=== PATIENT | male | born 1960 | race Caucasian/White ===

== ENCOUNTER 2018-04-26 07:26 | Inpatient (IN) | payer MEDICAID ==
[~2018-04-26] VITALS: Ht 167.6 cm; Wt 66.7 kg
[2018-04-26 07:46] VITALS: BP 176/104
--- NOTE | 2018-04-26 07:53 | NUR ---
PT AMBULATES TO BED 5
--- NOTE | 2018-04-26 08:00 | NUR ---
BIB SELF C/O N/V, LEFT FLANK PAIN, GENERALIZED ABD PAIN EXACERBATED BY CHANGES IN POSITION X 2 WEEKS. VOMITING X1 TODAY. DENIES URINARY COMPLAINTS. TOOK TYLENOL AT 0700, WITH SOME RELIEF; AAOX4, PERRL, WITH EVEN AND STEADY GAIT; LUNGS CLEAR BL, BREATHING UNLABORED; HR EVEN AND REGULAR, BL PERIPHERAL PULSES PRESENT; BS ACTIVE X4; PT DENIES ANY FEVER, CP, SOB, OR COUGH AT THIS TIME; PT STATES 7/10 PAIN AT THIS TIME; VSS; PATIENT POSITIONED FOR COMFORT; HOB ELEVATED; BEDRAILS UP X2; BED DOWN. 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
--- NOTE | 2018-04-26 08:10 | NUR ---
Patient being evaluated by physician at bedside.
[2018-04-26] MEDS ORDERED: NACL 0.9% 1,000 ML IV SCH (08:12)
[2018-04-26] MEDS ORDERED: NACL 0.9% 1,000 ML IV ONE (08:12)
[2018-04-26] MEDS ORDERED: KETOROLAC 30 MG/ML VIAL IVP ONE (08:15)
[2018-04-26] MEDS ORDERED: MORPHINE SULFATE 4 MG/ML SYR IVP ONE (08:15)
[2018-04-26] MEDS ORDERED: METOCLOPRAMIDE 10 MG/2 ML INJ VIAL IVP ONE (08:15)
[2018-04-26] MEDS ORDERED: ONDANSETRON 4 MG/2 ML VIAL IVP ONE (08:15)
[2018-04-26] MEDS ORDERED: PROMETHAZINE 25 MG/ML VIAL IM ONE (08:15)
--- NOTE | 2018-04-26 08:39 | NUR ---
PT TAKEN TO CT VIA [facility]BER
--- NOTE | 2018-04-26 08:47 | NUR ---
PT RETURNED FROM CT, US AT BEDSIDE
--- NOTE | 2018-04-26 09:07 | NUR ---
PHELB AT BEDSIDE.
[2018-04-26] MEDS ORDERED: cefTRIAXone 1,000 MG VIAL ONE (09:16)
[2018-04-26 09:26] LABS: BASOPHILS # (AUTO) 0.1 K/uL (0.00-0.22); BASOPHILS % (AUTO) 0.8 % (0.0-2.0); EOSINOPHILS # (AUTO) 0.1 K/uL (0-0.4); EOSINOPHILS % (AUTO) 1.5 % (0.0-4.0); HEMOGLOBIN 11.4 g/dL (12.0-18.0); LYMPHOCYTES # (AUTO) 1.9 K/uL (2.0-11.5); MEAN CORPUSCULAR HEMOGLOBIN 29 pg (27-31); MEAN CORPUSCULAR HGB CONC 32 g/dL (33-37); MEAN CORPUSCULAR VOLUME 88.8 fL (80-94); MONOCYTES # (AUTO) 0.5 K/uL (0.8-1.0); MONOCYTES % (AUTO) 5.2 % (1.7-9.3); NEUTROPHILS # (AUTO) 6.9 K/uL (1.8-7.7); NEUTROPHILS % (AUTO) 72.5 % (42.2-75.2); PLATELET COUNT (AUTO) 473 K/uL (140-450); RED BLOOD CELL COUNT(AUTO) 3.94 MIL/uL (4.20-6.10); RED CELL DISTRIBUTION WIDTH 14.1 % (11.6-13.7); WHITE BLOOD COUNT (AUTO) 9.6 K/uL (4.8-10.8)
--- NOTE | 2018-04-26 09:35 | NUR ---
PT IN BED WITH HANDS UNCROSSED. FEET UNCROSSED. IN RELAXED POSITION. FAMILY AT BEDSIDE.
--- NOTE | 2018-04-26 09:36 | NUR ---
NOTIFIED LAB URINE HAS BEEN COLLECTED SINCE PT CAME BACK TO THE BED.
[2018-04-26 09:42] LABS: ALBUMIN 1.5 g/dL (3.4-5.0); ANION GAP 12.6 (8-16); CARBON DIOXIDE 21.1 mmol/L (21-32); CREATININE 1.7 mg/dL (0.7-1.3); POTASSIUM 4.7 mmol/L (3.5-5.1); TOTAL BILIRUBIN 0.3 mg/dL (0.0-1.0)
--- NOTE | 2018-04-26 10:02 | NUR ---
PT STATES PAIN HAS SUBSIDED AT THIS TIME.
[2018-04-26 10:33] LABS: APPEARANCE,URINE CLOUDY (CLEAR); BILIRUBIN,URINE NEGATIVE (NEGATIVE); BLOOD, URINE 2+ (NEGATIVE); COLOR,URINE YELLOW (YELLOW); LEUKOCYTE ESTERASE ,URINE 3+ (NEGATIVE); NITRITE, URINE NEGATIVE (NEGATIVE); PH,URINE 6.5 (5.0-9.0); UGLUCOSE 2+ (NEGATIVE)
[2018-04-26 10:36] LABS: RBC,URINE 0-5 (RARE) /HPF (0-5); WBC,URINE TOO MANY TO COUNT /HPF (0-5)
--- NOTE | 2018-04-26 10:37 | NUR ---
DR. YODER MADE AWARE OF B/P 168/98 AT THIS TIME. ORDERS TO BE PLACED.
[2018-04-26] MEDS ORDERED: cloNIDine 0.1 MG TAB PO ONE (10:50)
[2018-04-26] MEDS ORDERED: PIPERACILLIN/TAZOBACTAM 3.375 GM in DEXTROSE 5% 50 ML IV ONE (10:55)
[2018-04-26] MEDS ORDERED: ACETAMINOPHEN 325 MG TAB PO PRN (11:00)
[2018-04-26] MEDS ORDERED: MORPHINE SULFATE 2 MG/ML SYR IVP PRN (11:00)
[2018-04-26] MEDS ORDERED: HYDROcodone/APAP 5/325 MG 1 TAB TAB PO PRN (11:00)
[2018-04-26] MEDS ORDERED: LORazepam 2 MG/ML VIAL IM/IVP PRN (11:00)
[2018-04-26] MEDS ORDERED: ZOLPIDEM 5 MG TAB PO PRN (11:00)
[2018-04-26] MEDS ORDERED: DOCUSATE SODIUM 100 MG GELCAP PO PRN (11:00)
[2018-04-26] MEDS ORDERED: PIPERACILLIN/TAZOBACTAM 3.375 GM VIAL IV ONE (11:10)
--- NOTE | 2018-04-26 11:13 | NUR ---
DR. PLATA AT BEDSIDE EVALUATING.
--- NOTE | 2018-04-26 11:15 | NUR ---
XRAY AT BEDSIDE
--- NOTE | 2018-04-26 11:36 | NUR ---
PT TAKEN TO [facility] FLOOR BY SHAWN JAEGER VIA WHEELCHAIR
--- NOTE | 2018-04-26 11:46 | NUR ---
Patient will be admitted to care of DR. SPEARS. Admited to [facility]. Will go to room 106A. Belongings list completed. Report to OZZY ESCOBAR.
--- NOTE | 2018-04-26 11:50 | NUR ---
RECEIVED BEDSIDE REPORT FROM ER NURSE. PT STABLE, AWAKE, AND ALERT. NO SIGNS OF DISTRESS NOTED. DENIES PAIN. DAUGHTER AT THE BEDSIDE. A&O X4. NO REDNESS, SWELLING, OR INFLAMMATION NOTED ON IV SITE. BED IN LOW POSITION. CALL LIGHT WITHIN REACH. PLAN OF CARE REVIEWED. SAFETY MEASURES IN PLACE.
[2018-04-26 12:00] VITALS: BP 120/70
[2018-04-26] MEDS: NACL 0.9% 1,000 ML IV SCH ×2 (12:55→21:46)
[2018-04-26] MEDS ORDERED: KETOROLAC 30 MG/ML VIAL IVP SCH (14:00)
[2018-04-26 14:07] LABS: PROTHROMBIN TIME 9.3 secs (10.8-13.4)
--- NOTE | 2018-04-26 14:35 | NUR ---
PT REFUSED SCHEDULED TORADOL. PT DENIES PAIN. NO OTHER NEEDS AT THIS TIME. FAMILY AT THE BEDSIDE.
[2018-04-26 15:11] LABS: MAGNESIUM 1.7 mg/dL (1.8-2.4)
[2018-04-26 16:00] VITALS: BP 112/65
--- NOTE | 2018-04-26 16:30 | NUR ---
VITAL SIGNS TAKEN. PT STABLE, AWAKE, AND ALERT. DENIES PAIN. NO OTHER NEEDS AT THIS TIME.
[2018-04-26] MEDS: KETOROLAC 30 MG/ML VIAL IVP SCH ×2 (18:00→23:43)
--- NOTE | 2018-04-26 18:13 | NUR ---
PT REFUSED SCHEDULED TORADOL. PT DENIES PAIN. NO OTHER NEEDS AT THIS TIME. FAMILY AT THE BEDSIDE.
--- NOTE | 2018-04-26 19:05 | NUR ---
ENDORSED PT TO SHAWN KELLY FOR CONTINUITY OF CARE. PT STABLE, AWAKE, AND ALERT.
--- NOTE | 2018-04-26 19:05 | NUR ---
RECEIVED REPORT FORM CARLIE PRECIADO RN DAYSHIFT NURSE AT BEDSIDE FOR CONTINUITY OF CARE, PT IN STABLE CONDITION.
[2018-04-26 20:00] VITALS: BP 118/63
--- NOTE | 2018-04-26 20:00 | NUR ---
PT IN BED WITH SIDE RAILS UP, AOX4 NO S/S OF PAIN OR DISTRESS NOTED. V/S FOLLOWS T 97.1 P 58 R 18 B/P 118/63 02 98% ON ROOM AIR. PT DENIES PAIN IV SITE LAC 22G INTACT AND FLUSHED PATENT N/S RUNNING AT 100MLS/HR.
[2018-04-26] MEDS ORDERED: INFLUENZA VIRUS VACCINE QUAD 0.5 ML SYR IMVAC PRN (22:15)
[2018-04-27] VITALS: BP 122/72
--- NOTE | 2018-04-27 | NUR ---
PT IN BED SLEEPING NO S/S OF PAIN OR DISTRESS NOTED. PT DECLINES DUE SHOT OF TORADOL. PT SAID THAT HE IS NOT HAVING ANY PAIN AT THIS TIME . V/S FOLLOWS T 97.0 P 56 R 18 B/P 122/72 02 97% WITH R/A. CALL JERONIMO IN REACH AND BED IN LOW POSITION WITH SIDE RAILS UP X2 AND CALL JERONIMO IN REACH.
--- NOTE | 2018-04-27 02:00 | NUR ---
PT IN BED NO S/S OF PAIN OR DISTRESS NOTED. PT SLEEPING SOUNDLY.
[2018-04-27] MEDS: KETOROLAC 30 MG/ML VIAL IVP SCH ×3 (06:00→17:06)
--- NOTE | 2018-04-27 06:16 | NUR ---
PT IN BED NO S/S OF PAIN OR DISTRESS NOTED. PT DECLINED HIS SCHEDULED TORADOL , HE DENIES PAIN AND DOESNT WANT THE SHOT.
[2018-04-27] MEDS ORDERED: MAGNESIUM OXIDE 400 MG TAB PO SCH (06:30)
--- NOTE | 2018-04-27 07:10 | NUR ---
RECEIVED BEDSIDE REPORT FROM BRIDGE WORKER NURSE. PT IS AAOX4. NO SIGNS OF DISTRESS NOTED ON ROOM AIR. DENIES ANY PAIN. IV SITE TO LEFT AC, PATENT AND INTACT, ASYMPTOMATIC. BED IN LOWEST POSITION. CALL LIGHT WITHIN REACH. PLAN OF CARE DISCUSSED. PT VERBALIZED UNDERSTANDING. SAFETY MEASURES IN PLACE.
--- NOTE | 2018-04-27 07:15 | NUR ---
GAVE REPORT TO ANIRUDH ESCOBAR DAYSHIFT NURSE AT BEDSIDE, PT IN STABLE CONDITION.
[2018-04-27 07:19] LABS: BASOPHILS # (AUTO) 0.1 K/uL (0.00-0.22); BASOPHILS % (AUTO) 1.3 % (0.0-2.0); EOSINOPHILS # (AUTO) 0.3 K/uL (0-0.4); HEMATOCRIT 33.1 % (36-52); HEMOGLOBIN 10.5 g/dL (12.0-18.0); LYMPHOCYTES # (AUTO) 2.8 K/uL (2.0-11.5); MEAN CORPUSCULAR HEMOGLOBIN 29 pg (27-31); MEAN CORPUSCULAR HGB CONC 32 g/dL (33-37); MEAN CORPUSCULAR VOLUME 90.5 fL (80-94); MONOCYTES # (AUTO) 0.6 K/uL (0.8-1.0); MONOCYTES % (AUTO) 6.6 % (1.7-9.3); NEUTROPHILS # (AUTO) 5.2 K/uL (1.8-7.7); NEUTROPHILS % (AUTO) 58.1 % (42.2-75.2); PLATELET COUNT (AUTO) 404 K/uL (140-450); RED BLOOD CELL COUNT(AUTO) 3.66 MIL/uL (4.20-6.10); RED CELL DISTRIBUTION WIDTH 14.7 % (11.6-13.7); WHITE BLOOD COUNT (AUTO) 8.9 K/uL (4.8-10.8)
[2018-04-27 07:41] LABS: ANION GAP 8.9 (8-16); CARBON DIOXIDE 23.2 mmol/L (21-32); CREATININE 2.2 mg/dL (0.7-1.3); POTASSIUM 5.1 mmol/L (3.5-5.1)
[2018-04-27 07:48] LABS: CHOL/HDL RATIO 9.7 (1-4.5); MAGNESIUM 1.8 mg/dL (1.8-2.4); PHOSPHORUS 4.4 mg/dL (2.5-4.9)
[2018-04-27 08:00] VITALS: BP 149/88
[2018-04-27] MEDS: LACTOBACILLUS RHAMNOSUS GG 1 EACH CAP PO SCH (08:04)
--- NOTE | 2018-04-27 08:08 | NUR ---
PATIENT HAS BEEN SCREENED AND CATEGORIZED HIGH NUTRITION RISK. PATIENT WILL BE SEEN WITHIN 1-2 DAYS OF ADMISSION. 04/26/18-04/27/[address]
[2018-04-27] MEDS: NACL 0.9% 1,000 ML IV SCH ×2 (09:24→17:46)
--- NOTE | 2018-04-27 09:30 | NUR ---
PT IS AMBULATORY, INDEPENDENT, GAIT STEADY. PT WENT TO THE RESTROOM AND CAME BACK TO BED.
--- NOTE | 2018-04-27 12:15 | NUR ---
PT DENIES ANY PAIN, EATING LUNCH AT THIS TIME.
--- NOTE | 2018-04-27 15:35 | NUR ---
04/27/18 RD INITIAL ASSESSMENT COMPLETED PLEASE REFER TO NUTRITION ASSESSMENT UNDER CARE ACTIVITY FOR ESTIMATED NUTRITIONAL NEEDS. 1. CONTINUE RENAL DIET TOLERATED 2. RD PROVIDED NUTRITION EDUCATION ON REDUCED CALCIUM AND PHOSPHATE DIET 3. RD TO FOLLOW-UP 5-7 DAYS, LOW RISK LUCHO FELIX, RD
[2018-04-27 16:00] VITALS: BP 127/85
--- NOTE | 2018-04-27 16:00 | NUR ---
PT'S BP WAS HIGH, PT VERBALIZED HE IS SOMETIMES ANXIOUS IN THE HOSPTIAL. OFFEREED PT'S MEDICATION FOR ANXIETY. PT REFUSED. PUT PT FLAT AND TOLD PT TO MEDITATE AND RELAX. WILL RECHECK BP IN 10-15 MIN. PT AGREES.
--- NOTE | 2018-04-27 16:15 | NUR ---
RECHECKED BP 127/85, HR 80. NO DISTRESS NOTED.
--- NOTE | 2018-04-27 16:30 | NUR ---
PT DENIES ANY PAIN.
--- NOTE | 2018-04-27 19:15 | NUR ---
RECEIVED BEDSIDE REPORT FROM SHAWN OLEARY, PATIENT IN BED, IV IN LEFT FA INFUSING NS AT 100. ARM LOOKS SLIGHTLY DISCOLORED COMPARED TO RIGHT ARM, PATIENT DENIES PAIN OR DISCOMFORT AT IV SITE, FLUSHED WITH 10 ML NS, PATENT. DAY SHIFT RN STATED ARM HAS BEEN LIKE THAT SINCE HE HAS AMBULATED FINGERS. ELEVATED ARM IN TWO PILLOWS WILL CONTINUE TO MONITOR. EXPLAINED PLAN OF CARE, UPDATED BORED. WILL CONTINUE TO MONITOR.
--- NOTE | 2018-04-27 19:15 | NUR ---
ENDORSED PT TO PARENT TRAINER RN. PT IN STABLE CONDITION
--- NOTE | 2018-04-27 21:00 | NUR ---
Ssds Mk 2 Advanced Operator notes: Patient stated not wanting to meet for screen. Stated " Im tired not today "
--- NOTE | 2018-04-27 21:06 | NUR ---
DUE NS GIVEN INFUSING AT 100 ML/HR
[2018-04-28] VITALS: BP 155/95
--- NOTE | 2018-04-28 00:02 | NUR ---
V/S TAKEN, PATIENT DENIES PAIN, WILL HOLD TORADOL.
--- NOTE | 2018-04-28 00:30 | NUR ---
V/S TAKEN NOTED BP 155/95 HR 105. WITHIN BASELINE WILL CONTINUE TO MONITOR
[2018-04-28] MEDS: NACL 0.9% 1,000 ML IV SCH ×2 (01:54→17:55)
--- NOTE | 2018-04-28 03:02 | NUR ---
PATIENT SLEEPING, BP 145/80. WITHIN BASELINE.
--- NOTE | 2018-04-28 05:15 | NUR ---
PATIENT SLEEPING NO SIGNS OF DISTRESS, PATIENT DENIED PAIN, WILL HOLD SCHEDULED PAIN MED.
[2018-04-28] MEDS: KETOROLAC 30 MG/ML VIAL IVP SCH ×2 (05:16)
--- NOTE | 2018-04-28 07:37 | NUR ---
ENDORSED PATIENT TO DAY SHIFT NURSE PATIENT STABLE.
--- NOTE | 2018-04-28 07:38 | NUR ---
RECEIVED REPORT FROM IN STORE BANKER NURSE FOR CONTINUITY OF CARE. PT IN STABLE CONDITION. RESPIRATIONS EVEN AND UNLABORED. IV INTACT AND PATENT. SAFETY MEASURES IN PLACE. CALL LIGHT AT BEDSIDE. BED IN LOW POSITION. WILL CONTINUE TO MONITOR.
[2018-04-28 08:00] VITALS: BP 192/108
[2018-04-28] MEDS ORDERED: FERROUS SULFATE 140 MG PO SCH (08:00)
[2018-04-28 08:08] LABS: BASOPHILS # (AUTO) 0.1 K/uL (0.00-0.22); BASOPHILS % (AUTO) 1.1 % (0.0-2.0); EOSINOPHILS # (AUTO) 0.3 K/uL (0-0.4); HEMOGLOBIN 11.1 g/dL (12.0-18.0); LYMPHOCYTES # (AUTO) 3.4 K/uL (2.0-11.5); LYMPHOCYTES % (AUTO) 30.6 % (20.5-51.1); MEAN CORPUSCULAR HEMOGLOBIN 29 pg (27-31); MEAN CORPUSCULAR HGB CONC 32 g/dL (33-37); MEAN CORPUSCULAR VOLUME 90.8 fL (80-94); MONOCYTES # (AUTO) 0.7 K/uL (0.8-1.0); MONOCYTES % (AUTO) 6.1 % (1.7-9.3); NEUTROPHILS # (AUTO) 6.7 K/uL (1.8-7.7); NEUTROPHILS % (AUTO) 59.2 % (42.2-75.2); PLATELET COUNT (AUTO) 434 K/uL (140-450); RED BLOOD CELL COUNT(AUTO) 3.85 MIL/uL (4.20-6.10); RED CELL DISTRIBUTION WIDTH 14.5 % (11.6-13.7); WHITE BLOOD COUNT (AUTO) 11.3 K/uL (4.8-10.8)
[2018-04-28 08:30] LABS: ANION GAP 10.4 (8-16); CARBON DIOXIDE 21.1 mmol/L (21-32); CREATININE 1.9 mg/dL (0.7-1.3); POTASSIUM 4.5 mmol/L (3.5-5.1)
[2018-04-28 08:55] LABS: MAGNESIUM 1.7 mg/dL (1.8-2.4)
[2018-04-28 09:10] VITALS: BP 204/102
--- NOTE | 2018-04-28 09:10 | NUR ---
BLOOD PRESSURE 204/102 DR. KOENIG ORDERED HYDRALAZINE. PT IN STABLE CONDITION. WILL CONTINUE TO MONITOR.
[2018-04-28] MEDS ORDERED: hydrALAZINE 20 MG/ML VIAL IVP PRN ×2 (09:15→12:35)
[2018-04-28] MEDS ORDERED: amLODIPine 5 MG TAB PO SCH (09:30)
[2018-04-28] MEDS: FERROUS SULFATE 325 MG TABEC PO SCH (09:32)
[2018-04-28] MEDS: LACTOBACILLUS RHAMNOSUS GG 1 EACH CAP PO SCH (09:32)
[2018-04-28] MEDS ORDERED: MAGNESIUM OXIDE 400 MG TAB PO SCH (09:36)
[2018-04-28] MEDS ORDERED: ATORVASTATIN 20 MG TAB PO SCH (09:37)
[2018-04-28] MEDS ORDERED: TAMSULOSIN 0.4 MG CAP PO SCH (09:57)
--- NOTE | 2018-04-28 12:20 | NUR ---
B/P 196/107, P101 DR. KOENIG ORDERED HYDRALZINE IVP AT THIS TIME. WILL CONTINUE TO MONITOR.
[2018-04-28] MEDS ORDERED: hydrALAZINE 20 MG/ML VIAL IVP SCH (12:42)
[2018-04-28] MEDS: ONDANSETRON 4 MG/2 ML VIAL IM/IVP PRN (13:11)
--- NOTE | 2018-04-28 14:20 | NUR ---
BLOOD PRESSURE TRENDING DOWN 154/95. P 116. WILL CONTINUE TO MONITOR.
[2018-04-28 16:00] VITALS: BP 166/99
[2018-04-28 16:01] LABS: FOLIC ACID 9.9 ng/mL (>3.0)
--- NOTE | 2018-04-28 16:20 | NUR ---
PT LYING IN BED WITH FAMILY AT BEDSIDE IN STABLE CONDITION. WILL CONTINUE FABIANA MONITOR.
--- NOTE | 2018-04-28 18:25 | NUR ---
PT IV LEAKING. PT C/O PAIN AT SITE. IV REMOVED. NO INJURY TO SITE NOTED AT THIS TIME. WILL CONTINUE TO MONITOR.
--- NOTE | 2018-04-28 19:29 | NUR ---
ENDORSED TO SET UP MOLD TECHNICIAN NURSE FOR CONTINUITY OF CARE. PT IN STABLE CONDITION.
--- NOTE | 2018-04-28 19:30 | NUR ---
RECD. RESTING IN BED, AWAKE, A/OX4. RESPIRATION EVEN AND UNLABORED. NO IV LINE, WILL INSERT A NEW ONE. ABLE TO AMBULATE INDEPENDENTLY. ENCOURAGED TO DRINK MORE FLUIDS, CRANBERRY JUICES GIVEN. REMINDED TO USE THE URINAL AND WAIT FOR NURSE TO RECORD URINE OUTPUT. PLAN OF CARE FOR THE SHIFT DISCUSSED. VERBALIZED UNDERSTANDING. DENIES PAIN 0/10.
[2018-04-28 20:00] VITALS: BP 150/95
--- NOTE | 2018-04-28 21:00 | NUR ---
COMPLAINT OF ONLY SMALL BM TODAY, 1 CUP PRUNE JUICE GIVEN.
--- NOTE | 2018-04-28 21:30 | NUR ---
Patient's Plan of Care was discussed and reviewed with COLLAR SHAPER OPERATOR: CEZAR FERRELL
--- NOTE | 2018-04-28 22:00 | NUR ---
STILL AWAKE, WATCHING TV.
[2018-04-29] VITALS: BP 152/58
--- NOTE | 2018-04-29 00:30 | NUR ---
NEW IV LINE INSERTED AT THE RIGHT ARM G24.
[2018-04-29] MEDS: NACL 0.9% 1,000 ML IV SCH (02:21)
--- NOTE | 2018-04-29 03:00 | NUR ---
IV LINE GOT PULLED OUT, STILL FUNCTIONAL, PUT BACK AND CLEANSED PATIENT'S HANDS. MADE COMFORTABLE IN BED.
--- NOTE | 2018-04-29 05:00 | NUR ---
HAD TWO MED-SMALL BM, SOFT. NO NAUSEA/VOMITING DURING SHIFT. Addendum: 04/29/18 at 0736 by Sydni Flores LVN CORRECTION: HAD THREE BM, A LARGE, 2 SMALL, SOFT BM.
--- NOTE | 2018-04-29 07:15 | NUR ---
ENDORSED TO AM SHIFT NURSE FOR CONTINUITY OF CARE.
--- NOTE | 2018-04-29 07:16 | NUR ---
RECEIVED REPORT FROM FRAMING SPECIALIST NURSE. PT IN STABLE CONDITION. RESPIRATIONS EVEN AND UNLABORED. IV INTACT AND PATENT. CALL LIGHT AT BEDSIDE. BED IN LOW POSITION. WILL CONTINUE TO MONITOR.
[2018-04-29 08:00] VITALS: BP 158/92
[2018-04-29 08:06] LABS: BASOPHILS # (AUTO) 0.1 K/uL (0.00-0.22); BASOPHILS % (AUTO) 0.9 % (0.0-2.0); EOSINOPHILS # (AUTO) 0.2 K/uL (0-0.4); EOSINOPHILS % (AUTO) 1.4 % (0.0-4.0); HEMATOCRIT 32.8 % (36-52); HEMOGLOBIN 10.4 g/dL (12.0-18.0); LYMPHOCYTES # (AUTO) 1.9 K/uL (2.0-11.5); LYMPHOCYTES % (AUTO) 16.2 % (20.5-51.1); MEAN CORPUSCULAR HEMOGLOBIN 28 pg (27-31); MEAN CORPUSCULAR HGB CONC 32 g/dL (33-37); MEAN CORPUSCULAR VOLUME 89.5 fL (80-94); MONOCYTES # (AUTO) 0.6 K/uL (0.8-1.0); MONOCYTES % (AUTO) 5.1 % (1.7-9.3); NEUTROPHILS % (AUTO) 76.4 % (42.2-75.2); PLATELET COUNT (AUTO) 403 K/uL (140-450); RED BLOOD CELL COUNT(AUTO) 3.67 MIL/uL (4.20-6.10); RED CELL DISTRIBUTION WIDTH 14.3 % (11.6-13.7); WHITE BLOOD COUNT (AUTO) 11.8 K/uL (4.8-10.8)
[2018-04-29 08:16] LABS: ANION GAP 9.8 (8-16); CARBON DIOXIDE 20.3 mmol/L (21-32); CREATININE 2.2 mg/dL (0.7-1.3); POTASSIUM 4.1 mmol/L (3.5-5.1)
[2018-04-29] MEDS: ONDANSETRON 4 MG/2 ML VIAL IM/IVP PRN (08:22)
[2018-04-29] MEDS ORDERED: TAMSULOSIN 0.4 MG CAP PO SCH (08:30)
[2018-04-29 08:41] LABS: PHOSPHORUS 4.1 mg/dL (2.5-4.9)
[2018-04-29] MEDS ORDERED: ATORVASTATIN 20 MG TAB PO SCH (09:00)
[2018-04-29] MEDS ORDERED: amLODIPine 5 MG TAB PO SCH ×2 (09:00)
--- NOTE | 2018-04-29 09:00 | NUR ---
GAVE ORDERED DUE MEDICATIONS AT THIS TIME. PT TOLERATED WELL. WILL CONTINUE TO MONITOR.
[2018-04-29] MEDS: FERROUS SULFATE 325 MG TABEC PO SCH (09:20)
[2018-04-29] MEDS: LACTOBACILLUS RHAMNOSUS GG 1 EACH CAP PO SCH (09:20)
[2018-04-29] MEDS ORDERED: AMLO5TAB6 PO (10:11)
[2018-04-29] MEDS ORDERED: ATOR20TA40 PO (10:11)
[2018-04-29] MEDS ORDERED: TAMS0.4C96 PO (10:11)
[2018-04-29] MEDS ORDERED: FER325 PO (10:11)
[2018-04-29] MEDS ORDERED: SULF-58 PO (10:15)
[2018-04-29] MEDS ORDERED: ZIPR20CA1 PO (10:42)
[2018-04-29] MEDS ORDERED: HYDR-5123 PO (10:44)
--- NOTE | 2018-04-29 11:00 | NUR ---
PT LYING IN BED IN STABLE CONDITION. FAMILY AT BEDSIDE. WILL CONTINUE TO MONITOR.
--- NOTE | 2018-04-29 12:35 | NUR ---
GAVE DISCHARGE INSTRUCTIONS AND PRESCRIPTION TO GIVE TO HOME PHARMACY, PT VERBALIZED UNDERSTANDING OF INSTRUCTIONS. IV REMOVED, LUMEN INTACT. ID BAND REMOVED. PT WAS WHEELED TO LOBBY IN WHEELCHAIR WHERE FAMILY MEMBER WAS WAITING WITH CAR. PT IN STABLE CONDITION.
== END 2018-04-29 12:35 | disposition home or self-care (01) | DRG 720 ==
LOC: MED 07:26 → MTU 10:59
PROVIDERS: ADMIT General Practice; ATTEND General Practice
DX: A41.9 Sepsis, unspecified organism (principal); N17.0 Acute kidney failure with tubular necrosis; E43 Unspecified severe protein-calorie malnutrition; N20.0 Calculus of kidney; Z82.49 Family history of ischemic heart disease and other diseases of the circulatory system; N11.1 Chronic obstructive pyelonephritis; I10 Essential (primary) hypertension; D64.9 Anemia, unspecified; K76.0 Fatty (change of) liver, not elsewhere classified; E83.42 Hypomagnesemia; E78.5 Hyperlipidemia, unspecified; R73.9 Hyperglycemia, unspecified; K80.20 Calculus of gallbladder without cholecystitis without obstruction; Z23 Encounter for immunization
CPT/HCPCS: 36415; 71045; 76705; 80048; 80053; 81001; 82150; 82607; 82728; 82746; 83036; 83540; 83690; 83735; 84100; 84443; 84484; 85025; 85045; 85610; 85730; 87040; 87081; 87086; 87186; 93976; 96365; 96367; 96372; 96375; 99285; J0360; J0696; J1885; J2270; J2405; J2543; J2550; J2765; J7030; J7060; Q0092